=== PATIENT | female | born 1940 | race Caucasian/White ===

== ENCOUNTER 2016-10-17 13:00 | Emergency (ER) | payer MEDICARE ==
[2016-10-17 13:12] VITALS: TEMP 98; BMI 25.0
[2016-10-17] MEDS ORDERED: SODIUM CHLORIDE 0.9% 3 ML FLUSH FLUSH PRN (16:00)
--- NOTE | 2016-10-17 16:08 | EDPRACDOC ---
- General Information Chief Complaint: Dyspnea/Resp distress Stated Complaint: SHORTNESS OF BREATH Time Seen by Provider: 10/17/16 15:59 Information Source: Patient Mode Of Arrival: Car Home Medications: Home Medications Cyclobenzaprine HCl [Flexeril] 10 mg PO HS 05/30/13 Furosemide [Lasix] 20 mg PO DAILY 05/30/13 Lansoprazole [Prevacid] 15 mg PO BID 05/30/13 Thyroid,Pork [Newman Thyroid] 90 mg PO DAILY 05/30/13 Trazodone HCl [Desyrel] 50 mg PO QHS 05/30/13 Alprazolam [Xanax] 0.25 mg PO DAILY PRN 10/17/16 Meloxicam [Mobic] 7.5 mg PO DAILY PRN 10/17/16 Prednisone See Comments 20 mg PO .ONCE SEE COMMENTS 10/17/16 Tramadol HCl [Ultram] 50 mg PO Q8H PRN 10/17/16 Allergies/Adverse Reactions: Allergies Allergy/AdvReac Type Severity Reaction Status Date / Time nitrofurantoin Allergy See Verified 10/17/16 13:12 [From Macrobid] Comments nitrofurantoin Allergy See Verified 10/17/16 13:12 macrocrystalline Comments [From Macrobid] Penicillins Allergy Dizziness Verified 10/17/16 13:12 - History of Present Illness HPI: SOB SINCE LAST NIGHT. RECENT DRAINAGE OF PLEURAL EFFUSION ON RIGHT September. ALSO SAW FLUID AROUND HEART AND CHEST. PT IS ON A CLINICAL TRIAL AT [facility] (THIS IS A KNOWN SIDE EFFECT). PT HAS SMALL CELL LUNG CANCER. WEAKNESS FOR A COUPLE OF DAYS, GRADUALLY WORSENING. FATIGUE. \NO NEW PAINS. ALSO 1 LIVER MET, GETTING SMALLER. SINCE STARTING TRIAL IN . ED Past Medical History - History Reviewed Yes Nurses notes reviewed and agree except as marked - Patient Medical History Neurological History: Reports: No Significant History Psychological History: Reports: Depression Systemic History: Reports: Cancer (LUNG), Hypothyroidism Surgical History: Reports: Tonsillectomy/Adnoidectomy - Family Medical History Reports: Hypertension, Cancer, Cardiac Disorders EDM Review of Systems - Review of Systems ROS Negative Except as Marked: Yes All systems reviewed and were negative except as marked Constitutional: Weakness. negative: Fever Eyes: No Symptoms Reported Respiratory: Shortness of Breath Cardiovascular: No Symptoms Reported Gastrointestinal: No Symptoms Reported Genitourinary: No Symptoms Reported Neurological: No Symptoms Reported Musculoskeletal: Other (PAIN IN THIGHS, SHOULDERS, UPPER ARMS. ONLY WITH MOVEMENT) Integumentary: Rash (AFTER BEING OUT IN SUN - CHEMO MAKES SUN SENSITIVE) - Physical Exam Constitutional: Alert (Awake), No apparent distress Oriented to: Time, Person, Place Last recorded Vital Signs: Last Vital Signs Temp 98.0 F 10/17/16 13:06 Pulse 92 10/17/16 16:02 Resp 18 10/17/16 16:02 BP 108/60 10/17/16 16:02 Pulse Ox 94 10/17/16 16:02 Oxygen Pulse Oxygen Saturation 94 O2 Device Room Air Oxygen Flow Rate Fraction of Inspired Oxygen ( FIO2) - HEENT Head: Normal ( normocephalic) Eye Exam: Normal (PERRL, EOMI, Sclera white) Oropharynx: Normal (Pharynx:Moist without exudate,Gums-no swelling) Nose: No Symptoms Reported (septum midline) Neck: Normal (FROM, trachea at midline) - Respiratory/Cardiovascular Respiratory: Normal - CTA (BBS clear to auscultation without adventitious sounds ), Other (SLIGHTLY DIMINISED RIGHT LUNG BASE) Cardiovascular: Normal (RRR without murmur, gallop or rub) - GI Auscultation: Normal (NABS) Palpation: Normal (Soft,No rebound or guarding, non distended) Tenderness: Non tender Lobato's Sign: Negative - Musculoskeletal Back: Normal (Non-Tender) Extremities: Normal (Normal tone, Pulses 2+ No cyanosis or edema, FROM) - Integumentary Skin: Normal, Warm, Dry Lymphatics: Normal (no adenopathy) - Neurologic Memory Impaired: Normal Motor Function: Normal (Normal tone, Pulses 2+ No cyanosis or edema, FROM) Cranial Nerve: Normal (CN II-X11 intact sensation, strength 5/5) Cerebellar: Normal Mood Description: Normal Perception: Normal ED SOB MDM - Results Result Diagrams: 10/17/16 17:25 10/17/16 17:25 - EKG EKG #1 EKG Time: 16:18 -: Yes EKG interpreted by me Rate: bpm: 87 [place]: Normal Rhythm: NSR ST: Nonsp Comments: ABNORMAL EKG; LOW VOLTAGE QRS - Additional Information Additional Information: 95% sats with ambulation. DISCUSSED CT ANGIO. PT RESISTANT AT THIS TIME. DUE TO GRADUAL ONSET OF SYMPTOMS AND PLEURAL EFFUSION, NO SOB AT REST. I FEEL NOT NECESSARY TODAY TO GET ANGIO. Decision Time to Discharge: 18:51 - Departure Yes I personally saw and evaluated the patient. Disposition: Home Condition: Stable Final Diagnosis: Recurrent right pleural effusion, Pleural effusion, left Dyspnea Qualifiers: Dyspnea type: shortness of breath Qualified Code(s): R06.02 - Shortness of breath Instructions: Pleural Effusion (ED) Education/Counseling Given To: Patient, Family Member Education/Counseling Given Regarding: Diagnosis Referrals: Rosie Odonnell MD [Primary Care Provider] - 1-2 days Additional Instructions: CALL YOUR PCP FOR POSSIBLE OUTPATIENT THORACENTESIS.
--- NOTE | 2016-10-17 17:07 | DIRPT ---
CLINICAL DATA: 75-year-old female with cough and shortness of breath since yesterday evening. Recent drainage of pleural effusion on the right side on October 07, 2016. History of small cell lung cancer. EXAM: CHEST 2 VIEW COMPARISON: Chest x-ray 02/18/2016. FINDINGS: Moderate right and small left pleural effusions. Bibasilar opacities favored to largely reflect areas of passive subsegmental atelectasis in the lower lungs bilaterally. Large nodular densities in the upper lobes of the lungs bilaterally, similar to prior examinations, better demonstrated on prior chest CT 04/15/2016. No new pulmonary nodules or masses are otherwise noted in the well aerated portions of the lungs. No acute consolidative airspace disease. No evidence of pulmonary edema. Heart size is within normal limits. Upper mediastinal contours are within normal limits. Atherosclerosis in the thoracic aorta. Right internal jugular single-lumen power ariana cath with tip terminating at the superior cavoatrial junction. Atherosclerosis in the thoracic aorta. Orthopedic fixation hardware in the lower cervical spine. IMPRESSION: 1. Moderate right and small left pleural effusions. Probable areas of passive atelectasis throughout the lung bases bilaterally. 2. Upper lobe pulmonary nodules bilaterally appear similar to prior examinations. No new nodules are otherwise noted. 3. Atherosclerosis. Electronically Signed By: Mickey Stiles M.D. On: 10/17/2016 17:05
[2016-10-17 17:27] LABS: LEUKOCYTES/URINE NEG (NEGATIVE); NITRITE/URINE NEG (NEGATIVE); RBC/URINE 0-2 (0-5); URINE OCCULT BLOOD NEG (NEG/TRACE)
[2016-10-17 17:43] LABS: AUTOMATED BASOPHIL 0.4 % (0-2); AUTOMATED EOSINOPHIL 0.4 % (0-5); AUTOMATED LYMPH 19.3 % (17-44); AUTOMATED MONOCYTE 14.6 % (3-10); AUTOMATED NEUTROPHIL 65.3 % (45-76); MPV 7.8 fL (7.4-10.4)
[2016-10-17 17:48] LABS: PARTIAL THROMB. TIME 24.4 SEC (22-35); PT-INR 1.1
[2016-10-17 17:57] LABS: BLOOD UREA NITROGEN 11 MG/DL (7-17); CALC CORRECTED 9.3 MG/DL (8.4-10.2); CALCIUM 8.7 MG/DL (8.4-10.2); CALCULATED OSMOLALITY 259 MOs/Kg (270-290); CHLORIDE 99 mEq/L (98-107); GLUCOSE 93 MG/DL (70-99); SODIUM LEVEL 135 mEq/L (137-146); TOTAL PROTEIN 6.3 G/DL (6.3-8.2)
[2016-10-17] MEDS ORDERED: SODIUM CHLORIDE 0.9% 3 ML FLUSH FLUSH SCH (18:00)
[2016-10-17] MEDS ORDERED: HEPARIN 500 UNITS/5 ML (100 UNITS/ML) SYR FLUSH ONE (18:54)
[2016-10-17 19:06] VITALS: BP 136/62; PULSE 86
== END 2016-10-17 19:05 | disposition home or self-care (01) ==
LOC: ED 13:00
DX: J90 Pleural effusion, not elsewhere classified (principal); C34.90 Malignant neoplasm of unspecified part of unspecified bronchus or lung; C78.7 Secondary malignant neoplasm of liver and intrahepatic bile duct; F32.9 Major depressive disorder, single episode, unspecified; Z79.899 Other long term (current) drug therapy
CPT/HCPCS: 36415; 71020; 80053; 81001; 83880; 84484; 85025; 85610; 85730; 93005; 99283; J1642

== ENCOUNTER 2016-11-24 15:10 | Emergency (ER) | payer MEDICARE ==
[2016-11-24 15:17] VITALS: TEMP 98.5; BMI 25.4
[2016-11-24 15:33] LABS: ABG Draw Site Right Radial; ABG Draw Tech SPEMA; ALLEN'S TEST PASS; BEb 2.2 (+/- 2); TCO2 26.3 MMOL/L (23-27)
[2016-11-24] MEDS ORDERED: NS 1,000 ML IV ONE (15:33)
[2016-11-24 16:03] LABS: AUTOMATED BASOPHIL 0.3 % (0-2); AUTOMATED EOSINOPHIL 1.9 % (0-5); AUTOMATED LYMPH 14.3 % (17-44); AUTOMATED MONOCYTE 10.6 % (3-10); AUTOMATED NEUTROPHIL 72.9 % (45-76); MPV 7.7 fL (7.4-10.4)
--- NOTE | 2016-11-24 16:16 | DIRPT ---
CLINICAL DATA: Fever. Current history of lung cancer. EXAM: CHEST 2 VIEW COMPARISON: November 23, 2016. FINDINGS: Stable cardiomediastinal silhouette. Right internal jugular Port-A-Cath is stable with distal tip in expected position of cavoatrial junction. No pneumothorax is noted. Stable mild bilateral pleural effusions are noted with associated basilar atelectasis. Right-sided pleural drainage catheter is again noted and unchanged. Stable bilateral upper lobe opacities are noted concerning for scarring or inflammation. No significant osseous abnormality is noted. IMPRESSION: Stable bilateral upper lobe opacities are noted concerning for scarring or possibly inflammation. Stable mild bilateral pleural effusions with associated atelectasis are noted. No changes seen involving right-sided pleural drainage catheter. Electronically Signed By: Shen Duarte Jr, M.D. On: 11/24/2016 16:13
[2016-11-24 16:23] LABS: BLOOD UREA NITROGEN 14 MG/DL (7-17); CALCIUM 8.4 MG/DL (8.4-10.2); CALCULATED OSMOLALITY 257 MOs/Kg (270-290); CHLORIDE 98 mEq/L (98-107); CPK TOTAL WITH POSSIBLE MB 38 IU/L (30-134); GLUCOSE 104 mg/dL (70-99); SODIUM LEVEL 133 mEq/L (137-146); TOTAL PROTEIN 6.4 G/DL (6.3-8.2)
[2016-11-24 16:52] LABS: LEUKOCYTES/URINE NEG (NEGATIVE); NITRITE/URINE NEG (NEGATIVE); RBC/URINE 0-2 (0-5); URINE OCCULT BLOOD NEG (NEG/TRACE); WBC/URINE 0-2 (0-5)
--- NOTE | 2016-11-24 17:51 | EDPRACDOC ---
- General Information Information Source: Patient Mode Of Arrival: Car - History of Present Illness Onset: 1 day Exact Onset of Symptoms: Unknown HPI: PT PRESENTS DUE TO HYPOTENSION AND WEAKNESS. 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 Symptoms Started: Reports: Gradually Symptoms Description: Worsening Weakness: Bilateral: Generalized Symptoms: Reports: Weak Symptom Severity: Reports: Unable to performs ADL's Relevant History of: Denies: O, Anemia, CVA, DM, Electrolyte disorder, GI Bleed , MS, TIA Associated signs and symptoms:: Denies: None, O, GI Bleed, Chest pain, Diarrhea , Fever, Headache, Nausea, Palpitations, Vomiting <Whit Phelps - Last Filed: 11/24/16 17:48> <Koby Mauro - Last Filed: 11/24/16 20:26> - General Information Chief Complaint: Generalized Weakness Stated Complaint: LOW BLOOD PRESSURE Time Seen by Provider: 11/24/16 15:32 Home Medications: Home Medications Cyclobenzaprine HCl [Flexeril] 10 mg PO QHS 05/30/13 Furosemide [Lasix] 20 mg PO DAILY 05/30/13 Thyroid,Pork [[place]ba Thyroid] 90 mg PO DAILY 05/30/13 Alprazolam [Xanax] 0.25 mg PO DAILY PRN 10/17/16 Meloxicam [Mobic] 7.5 mg PO DAILY PRN 10/17/16 Tramadol HCl [Ultram] 50 mg PO Q8H PRN 10/17/16 Calcium Carbonate [Tums] 300 mg PO Q4H PRN 11/24/16 Clindamycin HCl [Cleocin HCl] 300 mg PO TID 11/24/16 Omeprazole 20 mg PO BID 11/24/16 Oxycodone HCl/Acetaminophen [Percocet 5-325 mg Tablet] 1 tab PO QID PRN Potassium Chloride [Klor-Con] 20 meq PO DAILY 11/24/16 Trazodone HCl 100 - 200 mg PO QHS 11/24/16 Allergies/Adverse Reactions: Allergies Allergy/AdvReac Type Severity Reaction Status Date / Time nitrofurantoin Allergy See Verified 11/24/16 15:17 [From Macrobid] Comments nitrofurantoin Allergy See Verified 11/24/16 15:17 macrocrystalline Comments [From Macrobid] Penicillins Allergy Dizziness Verified 11/24/16 15:17 triamcinolone Allergy Rash-Genera Verified 11/24/16 16:08 lized ED Past Medical History - History Reviewed Yes Nurses notes reviewed and agree except as marked - Patient Medical History Psychological History: Denies: Depression Systemic History: Reports: Cancer (LUNG), Hypothyroidism Surgical History: Reports: Tonsillectomy/Adnoidectomy - Family Medical History Reports: Hypertension, Cancer, Cardiac Disorders - Social Medical History Smoking Status: Former smoker <Whit Phelps - Last Filed: 11/24/16 17:48> EDM Review of Systems - Review of Systems ROS Negative Except as Marked: Yes All systems reviewed and were negative except as marked <Whit Phelps - Last Filed: 11/24/16 17:48> - Physical Exam Constitutional: Alert. negative: Well appearing Oriented to: Time, Person, Place Last recorded Vital Signs: Last Vital Signs Temp 98.5 F 11/24/16 15:12 Pulse 92 11/24/16 17:09 Resp 20 11/24/16 15:45 BP 107/60 11/24/16 17:09 Pulse Ox 92 11/24/16 17:09 Oxygen Pulse Oxygen Saturation 92 O2 Device Room Air Oxygen Flow Rate 2 Fraction of Inspired Oxygen ( FIO2) - HEENT Head: Normal ( normocephalic) Eye Exam: Normal (PERRL, EOMI, Sclera white) Oropharynx: Normal (Pharynx:Moist without exudate,Gums-no swelling) Tympanic Membrane: Normal Nose: No Symptoms Reported (septum midline) Neck: Normal (FROM, trachea at midline) - Respiratory/Cardiovascular Respiratory: Diminished Cardiovascular: Tachycardia - GI Auscultation: Normal (NABS) Palpation: Normal (Soft,No rebound or guarding, non distended) Tenderness: Non tender Lobato's Sign: Negative Rectal Exam: Deferred - Musculoskeletal Back: Normal (Non-Tender) Extremities: Normal (Normal tone, Pulses 2+ No cyanosis or edema, FROM) - Integumentary Skin: Normal, Warm, Dry Lymphatics: Normal (no adenopathy) - Neurologic Memory Impaired: Normal Motor Function: Normal (Normal tone, Pulses 2+ No cyanosis or edema, FROM) Cranial Nerve: Normal (CN II-X11 intact sensation, strength 5/5) Cerebellar: Normal Mood Description: Normal Perception: Normal <LeninWhit W - Last Filed: 11/24/16 17:48> - Physical Exam Last recorded Vital Signs: Last Vital Signs Temp 98.5 F 11/24/16 15:12 Pulse 90 11/24/16 19:06 Resp 20 11/24/16 19:06 BP 118/57 L 11/24/16 19:06 Pulse Ox 9 L 11/24/16 19:06 Oxygen Pulse Oxygen Saturation 9 O2 Device Nasal Cannula Oxygen Flow Rate 2 Fraction of Inspired Oxygen ( FIO2) <Koby Mauro - Last Filed: 11/24/16 20:26> NIH Stroke Scale Initial Evaluation Level of Consciousness: Alert LOC- Question: Answers Both Correctly LOC Commands: Both Task Correctly Best Gaze: Normal Visual: No Visual Loss Facial Palsy: Normal Movement Motor Arm LEFT: No Drift Motor Arm RIGHT: No Drift Motor Leg LEFT: No Drift Motor Leg RIGHT: No Drift Limb Ataxia: Absent Sensory: Normal Best Language: No Aphasia Dysarthria: Normal Extinction and Inattention: No Abnormality (Neglect) Score: 0out of42 <Lenin,Whit W - Last Filed: 11/24/16 17:48> - Neurologic Orientation: Time, Person, Place Speech: Fluent, Clear Coginitive: Normal, Follows Commands Affect: Normal, Calm Thought: Coherent Perception: Normal <LeninWhit W - Last Filed: 11/24/16 17:48> - Differential Diagnosis Dehydration, Hypoxemia, Other - Results 11/24/16 15:48 11/24/16 15:48 WBC 6.1 xk/uL (3.8-10.8) 11/24/16 15:48 RBC 4.14 xM/uL (4.20-5.40) L 11/24/16 15:48 Hgb 11.9 g/dL (12.0-16.0) L 11/24/16 15:48 Hct 36.0 % (36-47) 11/24/16 15:48 MCV 87 fL (81-99) 11/24/16 15:48 MCH 28.8 pg (27-32) 11/24/16 15:48 MCHC 33.2 g/dl (33-36) 11/24/16 15:48 RDW 16.6 % (11.5-14.5) H 11/24/16 15:48 Plt Count 233 xk/uL (130-400) 11/24/16 15:48 MPV 7.7 fL (7.4-10.4) 11/24/16 15:48 Neut % (Auto) 72.9 % (45-76) 11/24/16 15:48 Lymph % (Auto) 14.3 % (17-44) L 11/24/16 15:48 Gregory % (Auto) 10.6 % (3-10) H 11/24/16 15:48 Eos % (Auto) 1.9 % (0-5) 11/24/16 15:48 Baso % (Auto) 0.3 % (0-2) 11/24/16 15:48 Absolute Neuts (auto) 4.39 xk/uL (1.7-8.2) 11/24/16 15:48 Absolute Lymphs (auto) 0.85 xk/uL (0.65-4.75) 11/24/16 15:48 Puncture Site Right radial 11/24/16 15:21 pH 7.480 pH UNITS (7.35-7.45) H 11/24/16 15:21 pCO2 34.0 mmHg (35-45) L 11/24/16 15:21 pO2 52.0 mmHg (80-100) L 11/24/16 15:21 HCO3 25.3 MMOL/L (22-26) 11/24/16 15:21 Total CO2 26.3 MMOL/L (23-27) 11/24/16 15:21 Base Excess 2.2 (+/- 2) H 11/24/16 15:21 FiO2 % 21 11/24/16 15:21 Specimen Drawn By Spema 11/24/16 15:21 Sodium 133 mEq/L (137-146) L 11/24/16 15:48 Potassium 3.4 mEq/L (3.5-5.1) L 11/24/16 15:48 Chloride 98 mEq/L (98-107) 11/24/16 15:48 Carbon Dioxide 28 mMOL/L (22-33) 11/24/16 15:48 Anion Gap 10 mEq/L (8-16) 11/24/16 15:48 BUN 14 MG/DL (7-17) 11/24/16 15:48 Creatinine 1.00 MG/DL (0.52-1.04) 11/24/16 15:48 Estimated GFR (MDRD) 54 mL/min (>=60) L 11/24/16 15:48 Glucose 104 mg/dL (70-99) H 11/24/16 15:48 Calculated Osmolality 257 MOs/Kg (270-290) L 11/24/16 15:48 Lactic Acid 0.9 mEq/L (0.7-2.1) 11/24/16 15:48 Calcium 8.4 MG/DL (8.4-10.2) 11/24/16 15:48 Corrected Calcium 9.0 MG/DL (8.4-10.2) 11/24/16 15:48 Total Bilirubin 0.7 MG/DL (0.2-1.3) 11/24/16 15:48 AST 30 IU/L (14-36) 11/24/16 15:48 ALT 26 IU/L (9-52) 11/24/16 15:48 Alkaline Phosphatase 359 IU/L (55-165) H 11/24/16 15:48 Creatine Kinase 38 IU/L (30-134) 11/24/16 15:48 Troponin I < 0.01 ng/mL (<.04) 11/24/16 15:48 Pqu-V-Swlsxhjojxg Pept 265 pg/mL (0-900) 11/24/16 15:48 Total Protein 6.4 G/DL (6.3-8.2) 11/24/16 15:48 Albumin 3.4 G/DL (3.5-5.0) L 11/24/16 15:48 Urine Color Yellow 11/24/16 16:20 Urine Clarity Clear 11/24/16 16:20 Urine pH 5.0 (5.0-8.0) 11/24/16 16:20 Ur Specific [place] 1.015 (1.003-1.035) 11/24/16 16:20 Urine Protein Neg (NEG/TRACE) 11/24/16 16:20 Urine Glucose (UA) Neg (NEGATIVE) 11/24/16 16:20 Urine Ketones Neg (NEGATIVE) 11/24/16 16:20 Urine Occult Blood Neg (NEG/TRACE) 11/24/16 16:20 Urine Nitrite Neg (NEGATIVE) 11/24/16 16:20 Urine Bilirubin Neg (NEGATIVE) 11/24/16 16:20 Urine Urobilinogen <2.0 MG/DL (0-1) 11/24/16 16:20 Ur Leukocyte Esterase Neg (NEGATIVE) 11/24/16 16:20 Urine RBC 0-2 (0-5) 11/24/16 16:20 Urine WBC 0-2 (0-5) 11/24/16 16:20 Urine Bacteria Few (NEG/FEW) 11/24/16 16:20 Hyaline Casts 10-20 (0-2) H 11/24/16 16:20 Urine Mucus Sm amt (NEG/OCC) 11/24/16 16:20 Microbiology 11/24/16 16:21 Influenza Type A Antigen Screen - Final N/P - Naso/Pharyngeal NEGATIVE Please note: A NEGATIVE result does not exclude an influenza virus infection. It is a presumptive result and, if required, confirmation should be done using either a virus culture or an FDA-cleared influenza A&B molecular assay. ("NORMAL" value = "NEGATIVE".) Influenza Type B Antigen Screen - Final NEGATIVE Please note: A NEGATIVE result does not exclude an influenza virus infection. It is a presumptive result and, if required, confirmation should be done using either a virus culture or an FDA-cleared influenza A&B molecular assay. ("NORMAL" value = "NEGATIVE".) Lab Results 11/24/16 11/24/16 11/24/16 16:20 15:48 15:48 WBC 6.1 RBC 4.14 L Hgb 11.9 L Hct 36.0 MCV 87 MCH 28.8 MCHC 33.2 RDW 16.6 H Plt Count 233 MPV 7.7 Neut % (Auto) 72.9 Lymph % (Auto) 14.3 L Gregory % (Auto) 10.6 H Eos % (Auto) 1.9 Baso % (Auto) 0.3 Absolute Neuts (auto) 4.39 Absolute Lymphs (auto) 0.85 Puncture Site pH pCO2 pO2 HCO3 Total CO2 Base Excess FiO2 % Specimen Drawn By Sodium Potassium Chloride Carbon Dioxide Anion Gap BUN Creatinine Estimated GFR (MDRD) Glucose Calculated Osmolality Lactic Acid 0.9 Calcium Corrected Calcium Total Bilirubin AST ALT Alkaline Phosphatase Creatine Kinase Troponin I Qli-D-Usfiyscsnzo Pept Total Protein Albumin Urine Color Yellow Urine Clarity Clear Urine pH 5.0 Ur Specific [place] 1.015 Urine Protein Neg Urine Glucose (UA) Neg Urine Ketones Neg Urine Occult Blood Neg Urine Nitrite Neg Urine Bilirubin Neg Urine Urobilinogen <2.0 Ur Leukocyte Esterase Neg Urine RBC 0-2 Urine WBC 0-2 Urine Bacteria Few Hyaline Casts 10-20 H Urine Mucus Sm amt 11/24/16 11/24/16 15:48 15:21 WBC RBC Hgb Hct MCV MCH MCHC RDW Plt Count MPV Neut % (Auto) Lymph % (Auto) Gregory % (Auto) Eos % (Auto) Baso % (Auto) Absolute Neuts (auto) Absolute Lymphs (auto) Puncture Site Right radial pH 7.480 H pCO2 34.0 L pO2 52.0 L HCO3 25.3 Total CO2 26.3 Base Excess 2.2 H FiO2 % 21 Specimen Drawn By Spema Sodium 133 L Potassium 3.4 L Chloride 98 Carbon Dioxide 28 Anion Gap 10 BUN 14 Creatinine 1.00 Estimated GFR (MDRD) 54 L Glucose 104 H Calculated Osmolality 257 L Lactic Acid Calcium 8.4 Corrected Calcium 9.0 Total Bilirubin 0.7 AST 30 ALT 26 Alkaline Phosphatase 359 H Creatine Kinase 38 Troponin I < 0.01 Yci-T-Ggcupsrumgw Pept 265 Total Protein 6.4 Albumin 3.4 L Urine Color Urine Clarity Urine pH Ur Specific [place] Urine Protein Urine Glucose (UA) Urine Ketones Urine Occult Blood Urine Nitrite Urine Bilirubin Urine Urobilinogen Ur Leukocyte Esterase Urine RBC Urine WBC Urine Bacteria Hyaline Casts Urine Mucus - EKG EKG #1 EKG Time: 16:08 -: Yes EKG interpreted by me Rate: bpm: 97 Duncan: RAD Rhythm: NSR Block: None Hypertrophy: RVH ST: Old, Inf, Infarct <Whit Phelps W - Last Filed: 11/24/16 17:48> - Re-evaluation Re-evaluation 1 Re-evaluation Time: 19:14 i saw and examined the pt. i confirmed details of the h/p.the pt feels well now , and doesnt have hypotension or tachycardia. no empyema is present on ct scan. she desires to go home. Re-evaluation 2 Re-evaluation Time: 20:24 bp and pulse are better. i intended to consult her oncologist. the pt is anxious to go home and would prefer that i did not. she has appt with onc on tuesday. i counselled her that we were always open and that she was welcome to return at any time. - Results 11/24/16 15:48 11/24/16 15:48 WBC 6.1 xk/uL (3.8-10.8) 11/24/16 15:48 RBC 4.14 xM/uL (4.20-5.40) L 11/24/16 15:48 Hgb 11.9 g/dL (12.0-16.0) L 11/24/16 15:48 Hct 36.0 % (36-47) 11/24/16 15:48 MCV 87 fL (81-99) 11/24/16 15:48 MCH 28.8 pg (27-32) 11/24/16 15:48 MCHC 33.2 g/dl (33-36) 11/24/16 15:48 RDW 16.6 % (11.5-14.5) H 11/24/16 15:48 Plt Count 233 xk/uL (130-400) 11/24/16 15:48 MPV 7.7 fL (7.4-10.4) 11/24/16 15:48 Neut % (Auto) 72.9 % (45-76) 11/24/16 15:48 Lymph % (Auto) 14.3 % (17-44) L 11/24/16 15:48 Gregory % (Auto) 10.6 % (3-10) H 11/24/16 15:48 Eos % (Auto) 1.9 % (0-5) 11/24/16 15:48 Baso % (Auto) 0.3 % (0-2) 11/24/16 15:48 Absolute Neuts (auto) 4.39 xk/uL (1.7-8.2) 11/24/16 15:48 Absolute Lymphs (auto) 0.85 xk/uL (0.65-4.75) 11/24/16 15:48 Puncture Site Right radial 11/24/16 15:21 pH 7.480 pH UNITS (7.35-7.45) H 11/24/16 15:21 pCO2 34.0 mmHg (35-45) L 11/24/16 15:21 pO2 52.0 mmHg (80-100) L 11/24/16 15:21 HCO3 25.3 MMOL/L (22-26) 11/24/16 15:21 Total CO2 26.3 MMOL/L (23-27) 11/24/16 15:21 Base Excess 2.2 (+/- 2) H 11/24/16 15:21 FiO2 % 21 11/24/16 15:21 Specimen Drawn By Spema 11/24/16 15:21 Sodium 133 mEq/L (137-146) L 11/24/16 15:48 Potassium 3.4 mEq/L (3.5-5.1) L 11/24/16 15:48 Chloride 98 mEq/L (98-107) 11/24/16 15:48 Carbon Dioxide 28 mMOL/L (22-33) 11/24/16 15:48 Anion Gap 10 mEq/L (8-16) 11/24/16 15:48 BUN 14 MG/DL (7-17) 11/24/16 15:48 Creatinine 1.00 MG/DL (0.52-1.04) 11/24/16 15:48 Estimated GFR (MDRD) 54 mL/min (>=60) L 11/24/16 15:48 Glucose 104 mg/dL (70-99) H 11/24/16 15:48 Calculated Osmolality 257 MOs/Kg (270-290) L 11/24/16 15:48 Lactic Acid 0.9 mEq/L (0.7-2.1) 11/24/16 15:48 Calcium 8.4 MG/DL (8.4-10.2) 11/24/16 15:48 Corrected Calcium 9.0 MG/DL (8.4-10.2) 11/24/16 15:48 Total Bilirubin 0.7 MG/DL (0.2-1.3) 11/24/16 15:48 AST 30 IU/L (14-36) 11/24/16 15:48 ALT 26 IU/L (9-52) 11/24/16 15:48 Alkaline Phosphatase 359 IU/L (55-165) H 11/24/16 15:48 Creatine Kinase 38 IU/L (30-134) 11/24/16 15:48 Troponin I < 0.01 ng/mL (<.04) 11/24/16 15:48 Xgs-U-Msobonqipfa Pept 265 pg/mL (0-900) 11/24/16 15:48 Total Protein 6.4 G/DL (6.3-8.2) 11/24/16 15:48 Albumin 3.4 G/DL (3.5-5.0) L 11/24/16 15:48 Urine Color Yellow 11/24/16 16:20 Urine Clarity Clear 11/24/16 16:20 Urine pH 5.0 (5.0-8.0) 11/24/16 16:20 Ur Specific [place] 1.015 (1.003-1.035) 11/24/16 16:20 Urine Protein Neg (NEG/TRACE) 11/24/16 16:20 Urine Glucose (UA) Neg (NEGATIVE) 11/24/16 16:20 Urine Ketones Neg (NEGATIVE) 11/24/16 16:20 Urine Occult Blood Neg (NEG/TRACE) 11/24/16 16:20 Urine Nitrite Neg (NEGATIVE) 11/24/16 16:20 Urine Bilirubin Neg (NEGATIVE) 11/24/16 16:20 Urine Urobilinogen <2.0 MG/DL (0-1) 11/24/16 16:20 Ur Leukocyte Esterase Neg (NEGATIVE) 11/24/16 16:20 Urine RBC 0-2 (0-5) 11/24/16 16:20 Urine WBC 0-2 (0-5) 11/24/16 16:20 Urine Bacteria Few (NEG/FEW) 11/24/16 16:20 Hyaline Casts 10-20 (0-2) H 11/24/16 16:20 Urine Mucus Sm amt (NEG/OCC) 11/24/16 16:20 Microbiology 11/24/16 16:21 Influenza Type A Antigen Screen - Final N/P - Naso/Pharyngeal NEGATIVE Please note: A NEGATIVE result does not exclude an influenza virus infection. It is a presumptive result and, if required, confirmation should be done using either a virus culture or an FDA-cleared influenza A&B molecular assay. ("NORMAL" value = "NEGATIVE".) Influenza Type B Antigen Screen - Final NEGATIVE Please note: A NEGATIVE result does not exclude an influenza virus infection. It is a presumptive result and, if required, confirmation should be done using either a virus culture or an FDA-cleared influenza A&B molecular assay. ("NORMAL" value = "NEGATIVE".) Lab Results 11/24/16 11/24/16 11/24/16 16:20 15:48 15:48 WBC 6.1 RBC 4.14 L Hgb 11.9 L Hct 36.0 MCV 87 MCH 28.8 MCHC 33.2 RDW 16.6 H Plt Count 233 MPV 7.7 Neut % (Auto) 72.9 Lymph % (Auto) 14.3 L Gregory % (Auto) 10.6 H Eos % (Auto) 1.9 Baso % (Auto) 0.3 Absolute Neuts (auto) 4.39 Absolute Lymphs (auto) 0.85 Puncture Site pH pCO2 pO2 HCO3 Total CO2 Base Excess FiO2 % Specimen Drawn By Sodium Potassium Chloride Carbon Dioxide Anion Gap BUN Creatinine Estimated GFR (MDRD) Glucose Calculated Osmolality Lactic Acid 0.9 Calcium Corrected Calcium Total Bilirubin AST ALT Alkaline Phosphatase Creatine Kinase Troponin I Gro-W-Jxclubkxkbb Pept Total Protein Albumin Urine Color Yellow Urine Clarity Clear Urine pH 5.0 Ur Specific [place] 1.015 Urine Protein Neg Urine Glucose (UA) Neg Urine Ketones Neg Urine Occult Blood Neg Urine Nitrite Neg Urine Bilirubin Neg Urine Urobilinogen <2.0 Ur Leukocyte Esterase Neg Urine RBC 0-2 Urine WBC 0-2 Urine Bacteria Few Hyaline Casts 10-20 H Urine Mucus Sm amt 11/24/16 11/24/16 15:48 15:21 WBC RBC Hgb Hct MCV MCH MCHC RDW Plt Count MPV Neut % (Auto) Lymph % (Auto) Gregory % (Auto) Eos % (Auto) Baso % (Auto) Absolute Neuts (auto) Absolute Lymphs (auto) Puncture Site Right radial pH 7.480 H pCO2 34.0 L pO2 52.0 L HCO3 25.3 Total CO2 26.3 Base Excess 2.2 H FiO2 % 21 Specimen Drawn By Spema Sodium 133 L Potassium 3.4 L Chloride 98 Carbon Dioxide 28 Anion Gap 10 BUN 14 Creatinine 1.00 Estimated GFR (MDRD) 54 L Glucose 104 H Calculated Osmolality 257 L Lactic Acid Calcium 8.4 Corrected Calcium 9.0 Total Bilirubin 0.7 AST 30 ALT 26 Alkaline Phosphatase 359 H Creatine Kinase 38 Troponin I < 0.01 Sdr-W-Heoydsqbjyg Pept 265 Total Protein 6.4 Albumin 3.4 L Urine Color Urine Clarity Urine pH Ur Specific [place] Urine Protein Urine Glucose (UA) Urine Ketones Urine Occult Blood Urine Nitrite Urine Bilirubin Urine Urobilinogen Ur Leukocyte Esterase Urine RBC Urine WBC Urine Bacteria Hyaline Casts Urine Mucus <Koby Mauro Timo - Last Filed: 11/24/16 20:26> - Departure Education/Counseling Given To: Patient Education/Counseling Given Regarding: Diagnosis, Treatment, Prognosis, Follow Up <Whit Phelps - Last Filed: 11/24/16 17:48> Decision Time to Discharge: 20:25 - Departure Yes I personally saw and evaluated the patient. Disposition: Home <Koby Mauro - Last Filed: 11/24/16 20:26> - Departure Condition: Stable Final Diagnosis: Hypoxia Instructions: Weakness (ED) Referrals: Arlen Cheney MD [Primary Care Provider] - One Week Prescriptions: No Action Cyclobenzaprine HCl [Flexeril] 10 mg PO QHS Thyroid,Pork [[place] Thyroid] 90 mg PO DAILY Furosemide [Lasix] 20 mg PO DAILY Meloxicam [Mobic] 7.5 mg PO DAILY PRN PRN Reason: Pain Alprazolam [Xanax] 0.25 mg PO DAILY PRN PRN Reason: Anxiety Tramadol HCl [Ultram] 50 mg PO Q8H PRN PRN Reason: Pain Potassium Chloride [Klor-Con] 20 meq PO DAILY Omeprazole 20 mg PO BID Oxycodone HCl/Acetaminophen [Percocet 5-325 mg Tablet] 1 tab PO QID PRN PRN Reason: Pain Clindamycin HCl [Cleocin HCl] 300 mg PO TID Trazodone HCl 100 - 200 mg PO QHS Calcium Carbonate [Tums] 300 mg PO Q4H PRN PRN Reason: ACID REFLUX
[2016-11-24] MEDS ORDERED: Pharmacy Review for Metformin - IV Contrast Given SCH (18:00)
--- NOTE | 2016-11-24 18:13 | DIRPT ---
CLINICAL DATA: History lung cancer. Low blood pressure. Fever. No chest pain. EXAM: CT ANGIOGRAPHY CHEST WITH CONTRAST TECHNIQUE: Multidetector CT imaging of the chest was performed using the standard protocol during bolus administration of intravenous contrast. Multiplanar CT image reconstructions and MIPs were obtained to evaluate the vascular anatomy. CONTRAST: 80 mL Isovue 370 COMPARISON: None. FINDINGS: There is adequate opacification of the pulmonary arteries. There is no pulmonary embolus. The main pulmonary artery, right main pulmonary artery and left main pulmonary arteries are normal in size. The heart size is normal. There is moderate-sized pericardial effusion. The thoracic aorta is normal in caliber. There is no thoracic aortic dissection. There is a 2.2 x 2 cm left upper lobe pulmonary nodule. There is a 1.3 x 0.9 cm right upper lobe pulmonary nodule. There are small bilateral pleural effusions. There is a right-sided chest tube. There are patchy ground-glass opacities in the right upper lobe. There is mediastinal lymphadenopathy with the largest subcarinal lymph node measuring 15 mm. The largest left hilar lymph node measures 11 mm. The largest right lower paratracheal lymph node measures 12 mm. There is an enlarged right hilar lymph node measuring 13 mm. There is no lytic or blastic osseous lesion. The visualized portions of the upper abdomen are unremarkable. Review of the MIP images confirms the above findings. IMPRESSION: 1. No evidence of pulmonary embolus. 2. Stable left upper lobe and right upper lobe pulmonary nodules consistent with known malignancy. Stable mediastinal and hilar lymphadenopathy. Electronically Signed By: Sowmya Hare On: 11/24/2016 18:10
[2016-11-24 20:27] VITALS: BP 130/58; PULSE 84
== END 2016-11-24 20:35 | disposition home or self-care (01) ==
LOC: ED 15:10
DX: R09.02 Hypoxemia (principal)
CPT/HCPCS: 36415; 36600; 71020; 71275; 80053; 81001; 82550; 82803; 83605; 83880; 84484; 85025; 87040; 87804; 93005; 96360; 96361; 99284; A9698